=== PATIENT | male | born 1970 | race Caucasian/White ===

== ENCOUNTER → 2017-08-16 | Outpatient (CLI) | payer OTHER ==
[~2017-08-16] MED LIST: NORCO 5-325 TA1 EACH PO; ZOVIRAX400 MG PO
[2017-08-16 15:20] LABS: HEMATOCRIT 46.4 % (42.0-52.0); HEMOGLOBIN 15.8 g/dl (14.0-18.0); MEAN CELL VOLUME 89.7 fl (80.0-94.0); MEAN CORPUSCULAR HGB 30.6 pg (27.0-31.0); MEAN CORPUSCULAR HGB CONC 34.1 g/dl (33.0-37.0); MEAN PLATELET VOLUME 9.6 fl (9.6-12.3); RED BLOOD COUNT 5.17 10*6/uL (4.50-5.90); RED CELL DISTRI WIDTH 13.8 % (0-14.5); WHITE BLOOD COUNT 8.7 10*3/uL (4.8-10.8)
[2017-08-16 15:39] LABS: ALBUMIN 4.1 gm/dl (3.1-4.5); ALKALINE PHOSPHATASE 61 U/L (45-117); BUN 17 mg/dl (7-24); CHLORIDE 104 mmol/L (98-107); CHOLESTEROL 190 mg/dL (<200); CREATININE 1.21 mg/dL (0.70-1.30); HDL CHOLESTEROL 44 mg/dl (40-60); LDL CHOLESTEROL 104 mg/dL (9-159); POTASSIUM 4.6 mmol/L (3.5-5.1); SGOT/AST 25 IU/L (3-35); SGPT/ALT 29 U/L (12-78); SODIUM 141 mmol/L (136-145); TOTAL PROTEIN 8.1 gm/dL (6.4-8.2); TRIGLYCERIDES 212 mg/dl (<150); VLDL CHOLESTEROL 42 mg/dL (6-40)
[2017-08-17 08:13] LABS: RHEUMATOID ARTHRITIS FACTOR <10.0 IU/mL (0.0-13.9)
== END | disposition home or self-care (01) ==
LOC: LAB 14:52
PROVIDERS: Family Medicine
DX: M79.604 Pain in right leg (principal); M25.50 Pain in unspecified joint; E78.00 Pure hypercholesterolemia, unspecified; R53.83 Other fatigue

== ENCOUNTER → 2017-08-23 | Outpatient (CLI) | payer OTHER | END | disposition home or self-care (01) | LOC: RAD 12:42 | DX: M54.5 Low back pain (principal) ==

== ENCOUNTER 2018-01-01 11:21 | Emergency (ER) | payer SELFPAY ==
[~2018-01-01] VITALS: Ht 180.3 cm; Wt 65.8 kg
[2018-01-01] MEDS ORDERED: IBU800 M1 PO (11:25)
[2018-01-01] MEDS ORDERED: MEDROL DOSEPAK4 MG PO (11:48)
[2018-01-01] MEDS ORDERED: NAPROSYN500 MG PO (11:48)
[2018-01-01] MEDS ORDERED: CYCLOBENZAPRINE10 MG PO (11:48)
== END 2018-01-01 14:02 | disposition home or self-care (01) ==
LOC: ED 11:21
DX: M54.41 Lumbago with sciatica, right side (principal)

== ENCOUNTER 2019-04-05 10:48 | Emergency (ER) | payer SELFPAY ==
[~2019-04-05] VITALS: Ht 180.3 cm; Wt 59.0 kg
[~2019-04-05 10:48] MED LIST changes: +CYCLOBENZAPRINE10 MG PO; +IBU800 M1 PO; +MEDROL DOSEPAK4 MG PO; +NAPROSYN500 MG PO
[2019-04-05 11:32] LABS: BASO # 0.1 10*3/uL (0.0-0.1); BASO % 0.4 % (0.0-1.0); EOS # 0.1 10*3/uL (0.0-0.4); EOS % 0.6 % (1.0-4.0); HEMATOCRIT 47.1 % (42.0-52.0); HEMOGLOBIN 15.4 g/dl (14.0-18.0); LYMPH % 16.1 % (27.0-41.0); MEAN CELL VOLUME 90.4 fl (80.0-94.0); MEAN CORPUSCULAR HGB 29.6 pg (27.0-31.0); MEAN CORPUSCULAR HGB CONC 32.7 g/dl (33.0-37.0); MEAN PLATELET VOLUME 9.1 fl (9.6-12.3); MONO # 1.2 10*3/uL (0.1-1.0); MONO % 9.8 % (3.0-9.0); NEUT % 72.6 % (47.0-73.0); PLATELET COUNT AUTOMATED 319 10*3/uL (130-400); RED BLOOD COUNT 5.21 10*6/uL (4.50-5.90); RED CELL DISTRI WIDTH 13.7 % (0-14.5); WHITE BLOOD COUNT 12.5 10*3/uL (4.8-10.8)
[2019-04-05 11:54] LABS: ALBUMIN 3.6 gm/dl (3.1-4.5); ALKALINE PHOSPHATASE 59 U/L (45-117); BUN 16 mg/dl (7-24); CHLORIDE 104 mmol/L (98-107); CREATININE 0.92 mg/dL (0.70-1.30); POTASSIUM 4.2 mmol/L (3.5-5.1); SGOT/AST 10 IU/L (3-35); SGPT/ALT 15 U/L (12-78); SODIUM 135 mmol/L (136-145)
[2019-04-06] MEDS ORDERED: MEDROL DOSEPAK4 MG PO (10:31)
== END 2019-04-05 13:18 | disposition home or self-care (01) ==
LOC: ED 10:48
PROVIDERS: Emergency Medicine
DX: M47.892 Other spondylosis, cervical region (principal); D72.829 Elevated white blood cell count, unspecified; R70.0 Elevated erythrocyte sedimentation rate; R63.4 Abnormal weight loss; F17.210 Nicotine dependence, cigarettes, uncomplicated; Z79.899 Other long term (current) drug therapy

== ENCOUNTER 2023-03-11 10:24 | Emergency (ER) | payer OTHER ==
[~2023-03-11] VITALS: Ht 154.9 cm; Wt 63.5 kg
[2023-03-11] MEDS ORDERED: ZANAFLEX4 MG PO (10:46)
[2023-03-11] MEDS ORDERED: TRAMADOL HCL50 MG PO (10:46)
== END 2023-03-11 11:50 | disposition home or self-care (01) ==
LOC: ED 10:24
DX: S39.012A Strain of muscle, fascia and tendon of lower back, initial encounter (principal); Z98.890 Other specified postprocedural states; F17.200 Nicotine dependence, unspecified, uncomplicated; X50.1XXA Overexertion from prolonged static or awkward postures, initial encounter; Y93.89 Activity, other specified; Y92.89 Other specified places as the place of occurrence of the external cause; Y99.8 Other external cause status